=== PATIENT | male | born 1970 | race Caucasian/White ===

== ENCOUNTER 2019-12-09 15:01 | Emergency (ER) | payer SELFPAY ==
[2019-12-09 15:07] VITALS: BMI 25.0
--- NOTE | 2019-12-09 15:07 | ED_ITS ---
HPI - Wound/Laceration General: Chief Complaint: Wound/Laceration Stated Complaint: left hand/finger smashed Time Seen by Provider: 12/09/19 15:07 History of Present Illness: HPI narrative: Patient is a 49-year-old male comes to the ED with an injury to his left hand. Injury occurred just prior to arrival. Patient says a wood splinter hit his left thumb. He was wearing a thick glove but when he took the glove off he saw a laceration and his thumb was in a lot of pain. He though he hear a crack. Patient is unaware of last tetanus shot. Associated symptoms: Denies chills, fever(s), nausea or vomiting Review of Systems Const: Denies: fever, chills or fatigue Eyes: Denies: change in vision or eye discomfort ENMT: Denies: throat pain, painful swallowing, nasal discharge or nasal skyla estion Card: Denies: chest pain, palpitations, edema, swelling of feet/ankles, shortness of breath on exertion or shortness of breath when lying down Resp: Denies: shortness of breath, productive cough or non-productive cough GI: Denies: abdominal pain, nausea, vomiting, diarrhea, constipation or blood in stool : Denies: flank pain, difficulty urinating, painful urination or blood in urine Musc: Reports: extremity pain (left hand (thumb)); Denies: neck pain, back pain or extremity swelling Skin/Breast: Reports: new lesion (laceration on thumb); Denies: rash Neuro: Denies: headache, numbness in extremities or weakness in extremities [facility] ED PFSH: Social History Smoking and tobacco status: current every day smoker Physical Exam Const: COMMON NORMALS: oriented x3 HENMT: COMMON NORMALS: normocephalic HEAD & SCALP: normocephalic MOUTH: oral and palatal mucosa normal THROAT: posterior oropharynx normal and uvula midline Neck/C-Spine: COMMON NORMALS: supple GENERAL: Yes normal visual inspection Resp: COMMON NORMALS: normal respiratory effort, no retractions, no use of accessory muscles and clear to auscultation bilaterally AUSCULTATION: clear to auscultation bilaterally Cardio: COMMON NORMALS: regular rate, regular rhythm, S1 normal heart sound, S2 normal heart sound, no gallops, no clicks, no murmurs and peripheral pulses 2+ throughout RATE: regular rate RHYTHM: regular rhythm HEART SOUNDS: S1 normal and S2 normal PERIPHERAL PULSES: pulses 2+ throughout GI: COMMON NORMALS: normal to inspection, nondistended, normoactive bowel sounds, soft to palpation, non-tender and no masses PALPATION: Yes soft : COMMON NORMALS: Yes no CVA tenderness BLADDER/KIDNEY EXAM: Yes no CVA tenderness Back/Pelvis: COMMON NORMALS: no CVA tenderness Extremity: LEFT UPPER EXTREMITY: Yes hand & digits Left hand and digits: Yes inspection (1.5 cm laceration to dorsal side of left thumb.), Yes palpation (Tender upon palpation of the left thumb.), Yes ROM, Yes neurovascular exam (Intact.) and Yes tendon exam (intact) Neuro: COMMON NORMALS: oriented x3 and moves all extremities Skin: TRAUMA: laceration (1.5 cm on dorsal side of Left thumb) linear and superficial; not actively bleeding Procedures Laceration Laceration 1: Site: hand (Thumb) Side (If applicable): left Size (cm): 1.5 Description: linear Depth: simple, single layer Local Anesthetic: lidocaine 2% Amount of anesthesia used (mL): 10 Pre-repair: irrigated extensively (with normal saline and iodine swabs) Skin layer closed with: nylon Size (cm): 4-0 Number of sutures: 3 Technique: simple, interrupted and other (I also used some dermabond.) Course Consultations: Consultation #1: I contacted the on-call orthopedic doctor to talk about case. Dr. Soares said himself or Delilah could see patient for follow-up in the clinic. Time: 17:11 MDM - Wound/Laceration MDM Narrative: Medical decision making narrative: Patient is a 49-year-old male who comes into the ED with a left thumb injury. Physical exam showed a 1.5 cm laceration on the dorsal side of the left thumb. Thumb was very tender to the touch. Neurovascular intact. X-ray of left hand showed nondisplaced transverse fracture of proximal phalanx of first finger. Laceration was cleaned with normal saline and skin prepped with iodine swab. 3 sutures were used to close up laceration and bandage was placed to cover laceration site. Patient refused getting tetanus shot and patient was made aware of the risks of not getting a tetanus shot. I contacted Dr. Soares the orthopedic certified medication technician DrAnju and he said that they will see patient in the clinic for follow-up. Patient was put in a thumb spica splint and given a dose of antibiotics while here in the ED. He was sent home with a prescription of Bactrim and a written prescription for Lortab 5/325 mg 12 tablets for pain. I placed an Ortho referral to case management. Patient have sutures removed in 7 to 10 days. Patient understood and agreed with plan. Imaging Data^: Xray Ortho: Attestation: I personally reviewed and interpreted this imaging study as follows: Radiologist's impression: [address] [address] XRay Report Signed Patient: Genaro Serna Unit #: [id number] : 1970 Age/Sex: 49 / M ADM Date: 12/09/19 Loc: ER Room/Bed: Attending Dr: Ordering Provider/Ordering MD: Manny Chong Date of Service: 12/09/19 Procedure(s): XR hand LT min 3V* 64399 Accession Number(s): [id number] Report Number: [id number] WS: [id number] LEFT HAND: 3 VIEW(S) TECHNIQUE: PA, oblique and lateral. HISTORY: injury with pain and laceration. COMPARISON: None available. Acute transverse fracture through the middle phalanx first finger. Fracture involves the distal diaphysis with adjacent soft tissue edema. No significant displacement. Otherwise interphalangeal joint space narrowing. Small subchondral cystic changes or erosions at the DIP joints. No subluxation. XR/XR hand LT min 3V* [id number] IMPRESSION: Nondisplaced transverse fracture middle phalanx first finger. Dictated By: Sun Lima DO Signed By: Sun Lima DO Signed Date/Time: 12/09/191621 DD/ 19 Discharge Plan Discharge Patient Disposition: Home, Self-Care Clinical Impression: Laceration Fracture of thumb, left, open Qualifiers: Encounter type: initial encounter Phalanx: proximal Fracture alignment: nondisplaced Qualified Code(s): S62.515B - Nondisplaced fracture of proximal phalanx of left thumb, initial encounter for open fracture Condition: Stable Prescriptions: New Bactrim DS 800-160 mg tablet 1 tab PO BID 10 Days Qty: 20 RF: 0 No Action Tylenol 325 mg Tablet 325 mg PO QID PRN (Reason: Pain) RF: 0 Discharge Orders: Discharge Order (Routine); Ordered 12/09/19 Ordered By: Manny Chong Discharge Diet: Regular Discharge Activity: Limit activity as instructed Patient Instructions: Fractures - Phalanx (Finger), Laceration (ED) Activity Restrictions/Additional Instructions: [facility] [place] you to set up an appointment in the next several days. Limit use of left hand. Continue wearing splint and do not remove splint until advised by orthopedic doctor. Take full course of antibiotics as prescribed. Coding Level of Care Code ED Retail Route Supervisor for Jim Bender Exam Comprehensive
--- NOTE | 2019-12-09 15:13 | XR_ITS ---
WS: [id number] LEFT HAND: 3 VIEW(S) TECHNIQUE: PA, oblique and lateral. HISTORY: injury with pain and laceration. COMPARISON: None available. Acute transverse fracture through the middle phalanx first finger. Fracture involves the distal diaph ysis with adjacent soft tissue edema. No significant displacement. Otherwise interphalangeal joint space narrowing. Small subchondral cystic changes or erosions at the DIP joints. No subluxation. XR/XR hand LT min 3V* 69933 IMPRESSION: Nondisplaced transverse fracture middle phalanx first finger.
[2019-12-09] MEDS: HYDROcodone-acetaminophen 5-325 mg Tablet 1 TAB PO (16:02)
--- NOTE | 2019-12-10 15:01 | DCPLANNER ---
corporate general manager had message to schedule a follow up appointment for patient with ortho. corporate general manager called the ortho clinic, spoke with Yareli. corporate general manager was told that patients information would be printed and reviewed. Clinic will call welfare case worker and patient with appointment information.
--- NOTE | 2019-12-11 13:42 | DCPLANNER ---
Patient has a follow up appointment scheduled for , December 11, 2019 at 4:[address] Soares. Clinic will call patient with appointment information.
--- NOTE | 2020-02-12 15:16 | DCPLANNER ---
Patient did attend follow up appointment with ortho.
== END 2019-12-09 17:55 | disposition home or self-care (01) ==
PROVIDERS: Emergency Provider Physician Assistant
DX: S62.515B Nondisplaced fracture of proximal phalanx of left thumb, initial encounter for open fracture (principal); W20.8XXA Other cause of strike by thrown, projected or falling object, initial encounter; F17.210 Nicotine dependence, cigarettes, uncomplicated
CPT/HCPCS: 12001; 12345; 73130; 99282; 99283

== ENCOUNTER → 2019-12-15 09:25 | Outpatient (BNVA) | payer SELFPAY | PROVIDERS: Visit Provider Specialist | DX: T14.8XXA Other injury of unspecified body region, initial encounter (principal); S62.502B Fracture of unspecified phalanx of left thumb, initial encounter for open fracture | CPT/HCPCS: 73140 ==

== ENCOUNTER 2019-12-15 10:49 | Outpatient (CLI) | payer SELFPAY | END 2019-12-15 10:50 | disposition home or self-care (01) | LOC: SPT 10:52 | PROVIDERS: Visit Provider Specialist | DX: Z46.89 Encounter for fitting and adjustment of other specified devices (principal); S62.515D Nondisplaced fracture of proximal phalanx of left thumb, subsequent encounter for fracture with routine healing; X58.XXXD Exposure to other specified factors, subsequent encounter | CPT/HCPCS: L3984 ==

== ENCOUNTER → 2019-12-22 09:24 | Outpatient (BNVA) | payer SELFPAY | PROVIDERS: Visit Provider Specialist | DX: S62.502B Fracture of unspecified phalanx of left thumb, initial encounter for open fracture (principal); S62.512B Displaced fracture of proximal phalanx of left thumb, initial encounter for open fracture | CPT/HCPCS: 73140 ==

== ENCOUNTER 2019-12-24 07:35 | Day surgery (SDC) | payer SELFPAY ==
[2019-12-23 13:26] VITALS: BMI 26.3
== END 2019-12-24 08:00 | disposition home or self-care (01) ==
LOC: OR 04-15 10:05
PROVIDERS: Visit Provider Specialist
DX: S62.512B Displaced fracture of proximal phalanx of left thumb, initial encounter for open fracture (principal); X58.XXXA Exposure to other specified factors, initial encounter
CPT/HCPCS: 36415

== ENCOUNTER 2019-12-25 09:21 | Day surgery (SDC) | payer SELFPAY ==
[2019-12-25] VITALS (13 sets, daily range): BP systolic 129–166; BP diastolic 83–104; PULSE 67–87; RESP 13–20; TEMP 36.1–36.6; O2SAT 95–100; BMI 26.3
--- NOTE | 2019-12-25 | SCC_ITS ---
Procedure Done: open reduction and internet security specialist left thumb proximal phalanx fracture 46.6 seconds of fluoroscopic guidance, for a cumulative dose of 0.68 mGy, was provided to Dr. Mazariegos by the radiology department. C-arm images of the LEFT thumb were saved for the patient's permanent record. VICTOR HUGO
--- NOTE | 2019-12-25 | XR_ITS ---
WS: [id number] C-ARM RADIOGRAPHS LEFT FIRST FINGER; 3 IMAGES HISTORY: OR PICS COMPARISON: 12/22/2019 Intraoperative pinning of a fracture involving the proximal phalanx. There are 5 percutaneous pin sta bilizing the fracture. XR/XR finger LT min 2V [id number] IMPRESSION: Percutaneous pinning fracture proximal first phalanx now in good position.
--- NOTE | 2019-12-25 10:00 | ANES.PREANE2 ---
Pre-Anesthetic Assessment Pre-Anesthetic Assessment: Height/Weight: Height 1.83 m Temp Pulse Resp BP Pulse Ox 97.6 F 82 16 146/99 98 12/25/19 09:58 12/25/19 09:58 12/25/19 09:58 12/25/19 09:58 12/25/19 09:58 Preop Diagnosis: Displaced open fracture proximal phalanx left thumb Proposed Procedure: Operation Date: 12/25/19 11:05 Proposed Procedures p Closed reduction left thumb proximal phalanx with pinning 15413 vs ORIF [id number] S62.512B(Left) - Olivier Mazariegos DO Familial anesthetic complications: Vomited while under anesthesia at age 14 for compound fracture of arm (sounds as though this was emergency procedure) Was Beta Farhat taken within 24 hours: N/A Last intake: Intake Last Liquid Date 12/24/19 Last Liquid Time 18:00 Last Solid Date 12/24/19 Last Solid Time 18:00 Social: Social History: Tobacco and No alcohol Packs per day: 0.5 ppd Exam: Pre-Anes Outpt Exam: alert, oriented x 3, clear to auscultation bilaterally and regular rate & rhythm Airway: Cervical ROM: WNL MP: 4 Dentition: Full Pulmonary: Pulmonary: None reported CV/HEM: CV/HEM: None reported : : None reported Hepatic: Hepatic: None reported GI: GI: None reported Metabolic: Metabolic: None reported Musc/skel: Musc/skel: None reported Neuropsych: Neuropsych: None reported Anesthetic Plan: ASA status: 1 Anesthesia: General Risk of > 500 ml blood loss (7ml/kg in children): No PFSH Anesthesia PFSH: Social History Smoking and tobacco status: current every day smoker Data Anesthesia Cardiac Studies: No Data to Display
[2019-12-25] MEDS: sodium chloride 0.9% 1,000 ML 30 ML IV (10:27)
--- NOTE | 2019-12-25 11:22 | W.PM.OPSUD ---
Surgery/Procedure H&P Update DATE OF PROCEDURE: December 25, 2019 DATE H&P PERFORMED: 12/22/19 H&P UPDATE INFORMATION: I have reviewed H&P completed within last 30 days, I have examined patient prior to procedure and No changes to prior documentation PREOP DIAGNOSIS: Displaced open fracture proximal phalanx left thumb PRIMARY INDICATION FOR PROCEDURE: as above PLANNED PROCEDURE: Operation Date: 12/25/19 11:05 Proposed Procedures p Closed reduction left thumb proximal phalanx with pinning 98472 vs ORIF [id number] S62.512B(Left) - Olivier Mazariegos DO
--- NOTE | 2019-12-25 11:23 | P.OP_ITS ---
Operative Report Date of procedure: December 25, 2019 Pre-op Diagnosis: Displaced open fracture proximal phalanx left thumb Post-op diagnosis: same Post-op Findings: nearly healed displaced/angulated fracture of proximal phalanx of operative left thumb Procedure Done: open reduction and internal medicine specialist left thumb proximal phalanx fractur Repair of extensor tendon left thumb Implants: #5-- 0.035 k-wires Specimens removed/disposition: Not applicable Pathology: none sent Surgeon: Olivier Mazariegos Anesthesia: General Estimated blood loss (mL): 5 Tourniquet time (min): 65 (at 250 mmHg pressure) Complications: No apparent complications Findings: angulated proximal phalanx near the interphalangeal was nearly healed. Attempts prior to performing opening were unable to reduce the angulation at the fracture site. Condition: stable Disposition: PACU Brief History: 49-year-old white male who sustained a open fracture of his left thumb proximal phalanx as result of getting his thumb caught in a wood splitter. Injury was approximately 2 weeks ago. He is was to have surgery by my partner yesterday however he no showed for his appointment for surgery. He was later contacted the seen in the office. Discussed risks and benefits of potential surgery. I strongly advised him to consider surgical intervention for his displaced fracture. At the time of his injury had a laceration that was repaired by the emergency room and that has subsequently healed and sutures been removed. Risk of surgery include are not limited to infection nerve/blood vessel/tenderness stiffness at the interphalangeal joint of the left thumb, wound healing complications. Medical complications can include blood clots, heart attack, stroke risk up to including . All questions answered patient agreeable to proceed with surgery. Procedure: 900 mg clindamycin IV Patient identified. Surgical site was signed. Surgical permit was signed. The patient received 900 mg of clindamycin intravenously for surgical prophylaxis as he is penicillin allergic. He was taken the operating room. His placed supine on the operating room table was placed under general anesthesia without difficulty. A tourniquet was placed but the upper aspect of left upper extremity. Left upper extremity is in sterilely prepped and draped usual fashion. A timeout was performed. The operative limb was exsanguinated using Esmarch bandage tourniquet inflated 250 mmHg pressure. A several attempts to reduce the patient's fracture using fluoroscopic imaging to assess her ability to reduce the fracture. Despite these multiple attempts there was no improvement in the overall alignment of the fracture. We made an incision incorporating the patient's previous laceration that had healed with a #15 blade. Using tenotomy scissors to dissect the skin making full-thickness skin flaps from the extensor tendon. The extensor tendon was very adherent to the underlying proximal phalanx at the fracture site. In order to access the fracture site I did a step cut of the extensor tendon and retracted the ends of the tendon exposing the fracture site allowing unimpeded visualization. The fracture was then able to be reduced with a longitudinal pin which required the interphalangeal joint to be flexed in order to reduce the fracture. Once the longitudinal pin was placed used to total of 4 K wires placed at the distal lateral aspect of the proximal phalanx in the area of the condyles proximally. I then removed the longitudinal placed K wire and extended the thumb and then repairing the joint the past and the K wire through the distal phalanx and into the proximal phalanx this was done to help protect the extensor tendon repair. Extensor tendon repair was performed using 4-0 FiberWire permanent suture and a 6-0 nylon running epitendinous suture. The wound is irrigated Betadine- containing saline solution and antibiotic containing saline solution. Skin was closed with nylon on skin. The K wires were bent 90? outside of the skin with pin covers applied. A digital block of the thumb was performed using 10 mL of a one-to-one mixture 1% lidocaine half percent Marcaine both without any epinephrine. Fluoroscopic imaging showed satisfactory reduction of the fracture in anatomic fashion and appropriate placement of implants. Antibiotic ointment was applied to the incision line followed by sterile dressings the patient was placed in a short arm thumb spica splint. The tourniquet was deflated during application of dressings. The patient was aroused from general anesthesia. He was taken to the recovery room. He tolerated surgery well. All counts are correct.
[2019-12-25] MEDS: clindamycin 900 MG/50 ML PREMIX 100 MG IV (12:03)
[2019-12-25] MEDS: lidocaine 1% INJ 20 mL SUBCUT (13:08)
[2019-12-25] MEDS: neomycin-poly-bacitracin oint 28 gm 1 APPLIC TOPICAL (13:30)
--- NOTE | 2019-12-25 13:51 | SUR.PHASEI ---
1350 PATIENT TO PACU AT THIS TIME FROM OR. RR EVEN AND UNLABORED. ORAL AIRWAY IN PLACE. SPO2 97% ON RA. DRESSING TO LEFT THUMB, CDI WITH SLING IN PLACE. PATIENT NOTED TO BE RESTING COMFORTABLE IN BED. UNRESPONSIVE TO VERBAL STIMULI AT THIS TIME, PROTECTING AIRWAY. 1353 ORAL AIRWAY REMOVED AT THIS TIME. SPO2 96% ON RA.
[2019-12-25] MEDS: ondansetron 2 mg/ML SDV 2 mL 4 MG IVP (14:03)
[2019-12-25] MEDS: fentaNYL 50 mcg/mL INJ 2mL IVP (14:07)
--- NOTE | 2019-12-25 14:26 | SUR.PHASEI ---
1421 PATIENT TO OPS AT THIS TIME. RR EVEN AND UNLABORED. RATES PAIN 7/10,WANTING A PAIN PILL IN OPS. DRESSING TO LEFT THUMB, CDI WITH SLING IN PLACE.
--- NOTE | 2019-12-25 14:33 | SUR.PHASEI ---
1421 ANESTHESIA AWARE OF LAST DOSE OF FENTANYL. THIS NURSE REMAINED WITH PATIENT UNTIL 1423.
[2019-12-25] MEDS: oxyCODONE-APAP 5-325 mg Tablet 1 TAB PO (14:48)
== END 2019-12-25 15:18 | disposition home or self-care (01) ==
PROVIDERS: Visit Provider Orthopaedic Surgery
PROC: (CPT 26418; principal; 2019-12-25 10:45)
DX: S62.512B Displaced fracture of proximal phalanx of left thumb, initial encounter for open fracture (principal); W23.0XXA Caught, crushed, jammed, or pinched between moving objects, initial encounter; F17.210 Nicotine dependence, cigarettes, uncomplicated
CPT/HCPCS: 26418; 26735; 12345; 73140; 76000; J0330; J1100; J1580; J2001; J2405; J2704; J3010; J3490; J7030

== ENCOUNTER → 2020-01-02 11:03 | Outpatient (BNVA) | payer SELFPAY | PROVIDERS: Visit Provider Orthopaedic Surgery | DX: Z48.89 Encounter for other specified surgical aftercare (principal); S62.512B Displaced fracture of proximal phalanx of left thumb, initial encounter for open fracture; X58.XXXD Exposure to other specified factors, subsequent encounter | CPT/HCPCS: 73140 ==

== ENCOUNTER → 2020-01-13 15:14 | Outpatient (BNVA) | payer SELFPAY | PROVIDERS: Visit Provider Orthopaedic Surgery | DX: S62.512B Displaced fracture of proximal phalanx of left thumb, initial encounter for open fracture (principal); X58.XXXA Exposure to other specified factors, initial encounter | CPT/HCPCS: 73140 ==

== ENCOUNTER → 2020-01-21 10:17 | Outpatient (BNVA) | payer SELFPAY | PROVIDERS: Visit Provider Orthopaedic Surgery | DX: S62.512B Displaced fracture of proximal phalanx of left thumb, initial encounter for open fracture (principal); X58.XXXD Exposure to other specified factors, subsequent encounter | CPT/HCPCS: 73140 ==